=== PATIENT | male | born 1985 ===

== ENCOUNTER 2017-10-31 07:34 | Outpatient (CLI) | payer OTHER ==
[~2017-10-31] VITALS: Ht 177.8 cm; Wt 90.7 kg
[2017-10-31] MEDS ORDERED: CEFUROXIME500 MG PO (08:51)
[2017-10-31] MEDS ORDERED: MEDROL4 MG PO (08:52)
[2017-10-31] MEDS ORDERED: FLONASE16 GM NASAL (08:52)
== END 2017-10-31 07:45 | disposition home or self-care (01) ==
LOC: OFIC 805 07:34
DX: J32.8 Other chronic sinusitis (principal); J31.0 Chronic rhinitis; J34.3 Hypertrophy of nasal turbinates; R49.8 Other voice and resonance disorders; R05 Cough